=== PATIENT | male | born 1995 | race Caucasian/White ===

== ENCOUNTER 2018-01-25 18:55 | Emergency (ER) | payer BC ==
[2018-01-25] MEDS: LORAZEPAM 1 MG TAB PO (21:48)
[2018-01-25 22:09] LABS: ADD UMIC YES; UR ASCORBIC ACID NEGATIVE (NEGATIVE); UR BACTERIA FEW /HPF (NONE SEEN); UR BILIRUBIN (Dip) NEGATIVE (NEGATIVE); UR BLOOD (Dip) 1+ mg/dL (NEGATIVE); UR CLARITY CLEAR (CLEAR); UR COLOR STRAW (YELLOW); UR GLUCOSE (Dip) NEGATIVE (NEGATIVE); UR KETONES (Dip) NEGATIVE (NEGATIVE); UR LEUKOCYTE ESTERASE (Dip) NEGATIVE Leu/ul (NEGATIVE); UR NITRITE (Dip) NEGATIVE (NEGATIVE); UR RBC 1 /HPF (0-5); UR TOTAL PROTEIN (Dip) NEGATIVE (NEGATIVE); UR UROBILINOGEN (Dip) NEGATIVE (NEGATIVE); UR WBC 1 /HPF (0-5)
[2018-01-25] MEDS: CEFTRIAXONE 250 MG INJ IM (23:00)
== END 2018-01-25 23:45 | disposition home or self-care (01) ==
LOC: FTE 18:55
DX: N45.3 Epididymo-orchitis (principal)
CPT/HCPCS: 76870; 81001; 87591; 96372; 99285-25

== ENCOUNTER 2018-02-11 17:43 | Emergency (ER) | payer BC ==
[2018-02-11 19:10] LABS: ADD UMIC NO; UR ASCORBIC ACID NEGATIVE (NEGATIVE); UR BILIRUBIN (Dip) NEGATIVE (NEGATIVE); UR BLOOD (Dip) NEGATIVE (NEGATIVE); UR CLARITY CLEAR (CLEAR); UR COLOR YELLOW (YELLOW); UR GLUCOSE (Dip) NEGATIVE (NEGATIVE); UR KETONES (Dip) NEGATIVE (NEGATIVE); UR LEUKOCYTE ESTERASE (Dip) NEGATIVE Leu/ul (NEGATIVE); UR NITRITE (Dip) NEGATIVE (NEGATIVE); UR SPECIFIC GRAVITY (Dip) 1.025 (1.003-1.030); UR TOTAL PROTEIN (Dip) NEGATIVE (NEGATIVE); UR UROBILINOGEN (Dip) 1+ mg/dL (NEGATIVE)
== END 2018-02-11 20:55 | disposition home or self-care (01) ==
LOC: FTE 17:43
DX: N50.811 Right testicular pain (principal); N50.812 Left testicular pain
CPT/HCPCS: 76870; 81003; 87591; 99284-25

== ENCOUNTER 2018-06-29 13:11 | Emergency (ER) | payer BC ==
[2018-06-29] MEDS: ACETAMINOPHEN 325 MG TAB PO (14:57)
== END 2018-06-29 15:24 | disposition home or self-care (01) ==
LOC: FTE 13:11
DX: R07.9 Chest pain, unspecified (principal)
CPT/HCPCS: 71045; 93005; 99283-25

== ENCOUNTER 2018-07-18 08:02 | Emergency (ER) | payer BC | END 2018-07-18 09:09 | disposition home or self-care (01) | LOC: FTE 08:02 | DX: S81.852A Open bite, left lower leg, initial encounter (principal); W54.0XXA Bitten by dog, initial encounter; Y92.9 Unspecified place or not applicable | CPT/HCPCS: 99282 ==

== ENCOUNTER 2018-09-10 10:12 | Emergency (ER) | payer BC | END 2018-09-10 13:46 | disposition home or self-care (01) | LOC: FTE 10:12 | DX: N50.89 Other specified disorders of the male genital organs (principal) | CPT/HCPCS: 99283; Z7502 ==

== ENCOUNTER 2018-09-29 17:28 | Emergency (ER) | payer BC | END 2018-09-29 20:19 | disposition home or self-care (01) | LOC: FTE 17:28 | DX: S39.94XA Unspecified injury of external genitals, initial encounter (principal); X58.XXXA Exposure to other specified factors, initial encounter; Y92.9 Unspecified place or not applicable | CPT/HCPCS: 99283; Z7502 ==